=== PATIENT | male | born 1995 | race Caucasian/White ===

== ENCOUNTER 2019-05-19 09:22 | Emergency (ER) | payer OTHER ==
[2019-05-19] MEDS ORDERED: Naproxen TAB* 250 MG PO ONE (10:35)
--- NOTE | 2019-05-19 12:38 | UC ---
Hand/Wrist HPI - HPI Summary HPI Summary: 23-year-old male presents with complaints of left wrist pain. States he tripped last evening and fell backwards onto an outstretched arm. Complains of pain and swelling to the left radial wrist. States pain worsens with any movement of the wrist. No alleviating factors but has not taken any over-the- counter analgesics. Denies any numbness or tingling. - History Of Current Complaint Chief Complaint: UCUpperExtremity Stated Complaint: S/P FALL LEFT WRIST INJURY Time Seen by Provider: 05/19/19 10:38 Hx Obtained From: Patient Pain Intensity: 7 - Allergies/Home Medications Allergies/Adverse Reactions: Allergies Allergy/AdvReac Type Severity Reaction Status Date / Time No Known Allergies Allergy Verified 05/19/19 10:33 Home Medications: Home Medications NK [No Home Medications Reported] 05/19/19 [History Confirmed 05/19/19] PMH/Surg Hx/FS Hx/Imm Hx Previously Healthy: Yes - Denies significant PMH - Surgical History Surgical History: None - Family History Known Family History: Positive: Non-Contributory - Social History Occupation: Employed Full-time Lives: With Family Alcohol Use: Weekly Alcohol Amount: weekends Substance Use Type: Marijuana Substance Use Comment - Amount & Last Used: occasional Smoking Status (MU): Never Smoked Tobacco Review of Systems All Other Systems Reviewed And Are Negative: Yes Constitutional: Positive: Negative Skin: Negative: Bruising Respiratory: Positive: Negative Cardiovascular: Positive: Negative Gastrointestinal: Positive: Negative Genitourinary: Positive: Negative Motor: Negative: Weakness Neurovascular: Negative: Decreased Sensation Musculoskeletal: Positive: Other: - See HPI Neurological: Positive: Negative Is Patient Immunocompromised?: No Physical Exam - Summary Physical Exam Summary: GENERAL APPEARANCE: Well developed, well nourished, alert and cooperative, and appears to be in no acute distress. HEAD: Atraumatic. Normocephalic. NECK: Neck supple, non-tender. Full ROM CARDIAC: Normal S1 and S2. No S3, S4 or murmurs. Rhythm is regular. There is no peripheral edema, cyanosis or pallor. Extremities are warm and well perfused. Capillary refill is less than 2 seconds. Peripheral pulses intact. LUNGS: Clear to auscultation without rales, rhonchi, wheezing or diminished breath sounds. ABDOMEN: Positive bowel sounds. Soft, nondistended, nontender. No guarding or rebound. No masses or hepatosplenomegally. MUSKULOSKELETAL: ROM intact to all extremities. No joint erythema or tenderness. Normal muscular development. Normal gait. BACK: Nno spinal deformity or tenderness, decreased range of motion or muscular spasm. EXTREMITIES: Snuff box tenderness with mild edema to the left wrist. No gross deformity or ecchymosis. Circulation and sensation were intact. SKIN: Skin normal color, texture and turgor. Triage Information Reviewed: Yes Vital Signs: Initial Vital Signs Temp 99.5 F 05/19/19 10:31 Pulse 75 05/19/19 10:31 Resp 14 05/19/19 10:31 BP 160/100 05/19/19 10:31 Pulse Ox 100 05/19/19 10:31 Vital Signs Reviewed: Yes Diagnostics - Radiology No standard instances Radiology Interpretation Completed By: Radiologist Summary of Radiographic Findings: Order Information: WRIST LEFT 3+ VWS. INDICATION: Left wrist pain after a fall. COMPARISON: None. TECHNIQUE: 4 views left wrist. REPORT: On the mag view of the wrist there is a lucent line beginning at the radial aspect distal pole of the left scaphoid and extending proximally and medially. The visualized bones are otherwise intact and anatomically aligned. IMPRESSION: Radiographic findings are suspicious for a nondisplaced distal pole left scaphoid fracture. Hand/Wrist Course/Dx - Course Course Of Treatment: 23-year-old male presents with complaints of left wrist pain. States he tripped last evening and fell backwards onto an outstretched arm. Complains of pain and swelling to the left radial wrist. States pain worsens with any movement of the wrist. No alleviating factors but has not taken any over-the- counter analgesics. Denies any numbness or tingling. Afebrile. Vital signs stable. Patient had snuff box tenderness with mild edema. No gross deformity or ecchymosis. Circulation and sensation were intact. Patient was given naproxen 500 mg for pain. X-ray was suspicious for a nondisplaced distal pole left scaphoid fracture. Reviewed findings with the patient. I placed him in a thumb spica splint using Ortho-Glass. Circulation sensation were intact pre- and post-application. Recommending conservative treatment including over-the- counter analgesics and RICE. He is to follow-up with orthopedic surgery either here or at home in [place] in 5-7 days for further evaluation and treatment. Anticipatory guidance and warning symptoms were reviewed with the patient. Verbalizes understanding and agrees with plan of care. - Differential Dx/Diagnosis Provider Diagnosis: Nondisplaced fracture of scaphoid of left wrist Discharge ED - Sign-Out/Discharge Documenting (check all that apply): Patient Departure All imaging exams completed and their final reports reviewed: Yes - Discharge Plan Condition: Stable Disposition: HOME Patient Education Materials: Splint Care (ED), Scaphoid Fracture (ED) Referrals: No Primary Care Phys,NOPCP [Primary Care Provider] - Khoa Mckenzie MD [Medical Doctor] - 5 Days Additional Instructions: The x-ray performed in the clinic today showed evidence of a nondisplaced fracture of the scaphoid bone of the left wrist. You will need to keep the splint that was applied in the clinic in place at all times. Be sure not to get this wet. Rest the wrist as much as possible. Apply ice to the affected area for 15-20 minutes at least 4 times a day to help with the pain and swelling. Elevate the arm to help reduce swelling. Take acetaminophen (Tylenol) or ibuprofen (Advil, Motrin) according to directions as needed for pain. Follow up with orthopedic surgery either here or at home in [place] in 5-7 days if symptoms do not improve. Seek immediate medical attention if you have severe pain not managed with pain medication, develop numbness or tingling in the hand or fingers, or have any worsening of symptoms. - Billing Disposition and Condition Condition: STABLE Disposition: Home
== END 2019-05-19 12:45 | disposition home or self-care (01) ==
LOC: UCCORT 09:22
DX: S62.002A Unspecified fracture of navicular [scaphoid] bone of left wrist, initial encounter for closed fracture (principal); W01.0XXA Fall on same level from slipping, tripping and stumbling without subsequent striking against object, initial encounter; Y92.9 Unspecified place or not applicable
CPT/HCPCS: 99202; A9270-GY; G0463